=== PATIENT | female | born 1945 | race Caucasian/White ===

== ENCOUNTER 2019-12-24 15:02 | Inpatient (IN) | payer MEDICARE, OTHER ==
[~2019-12-24] VITALS: Ht 152.4 cm; Wt 38.6 kg
[2019-12-24] MEDS ORDERED: DOCU100C36 PO (15:26)
[2019-12-24] MEDS ORDERED: CARV6.252 PO (15:26)
[2019-12-24] MEDS ORDERED: MAGN400O6 PO (15:26)
[2019-12-24] MEDS ORDERED: ATOR80TA PO (15:26)
[2019-12-24] MEDS ORDERED: CLOP75TA15 PO (15:26)
[2019-12-24] MEDS ORDERED: POLY17PO4 PO (15:26)
[2019-12-24] MEDS ORDERED: SPIR50TA5 PO (15:26)
[2019-12-24] MEDS ORDERED: ESOM20CA PO (15:26)
[2019-12-24 15:43] LABS: BASOPHILS # (AUTO) 0.1 K/uL (0.0-8.0); BASOPHILS % (AUTO) 0.4 % (0.0-2.0); EOSINOPHILS # (AUTO) 0.1 K/uL (0.0-0.7); EOSINOPHILS % (AUTO) 0.7 % (0.0-7.0); HEMATOCRIT 34.4 % (31.2-41.9); HEMOGLOBIN 11.5 g/dL (10.9-14.3); LYMPHOCYTES # (AUTO) 0.9 K/uL (20.0-40.0); LYMPHOCYTES % (AUTO) 6.9 % (20.5-51.5); MEAN CORPUSCULAR HEMOGLOBIN 31.1 uug (24.7-32.8); MEAN CORPUSCULAR HGB CONC 34 g/dL (32.3-35.6); MEAN CORPUSCULAR VOLUME 92.6 fL (75.5-95.3); MONOCYTES # (AUTO) 1.2 K/uL (2.0-10.0); MONOCYTES % (AUTO) 9.7 % (0.0-11.0); NEUTROPHILS # (AUTO) 10.5 K/uL (1.8-8.9); NEUTROPHILS % (AUTO) 82.3 % (38.5-71.5); PLATELET COUNT (AUTO) 233 K/uL (179-408); RED BLOOD CELL COUNT(AUTO) 3.71 MIL/uL (3.63-4.92); WHITE BLOOD COUNT (AUTO) 12.8 K/uL (3.8-11.8)
[2019-12-24 15:57] LABS: BILIRUBIN,DIRECT 0.4 mg/dL (0.0-0.2); BILIRUBIN,TOTAL 1.2 mg/dL (0.2-1.0); POTASSIUM 4.3 mmol/L (3.5-5.1); TOTAL PROTEIN, SERUM 6.5 g/dL (6.4-8.2)
[2019-12-24] MEDS ORDERED: SWABABLE VALVE TRANSFER SET EA MC ONE (16:16)
[2019-12-24] MEDS ORDERED: IOHEXOL 300MG/ML 100 ML INFUS..BTL ONE (16:16)
[2019-12-24] MEDS ORDERED: IV NORMAL SALINE 250 ML IV ONE (16:16)
[2019-12-24 18:01] LABS: *BILIRUBIN,URIN NEGATIVE (NEGATIVE); *BLOOD, URINE 2+ (NEGATIVE); *CLARITY,URINE CLEAR (CLEAR); *COLOR,URINE YELLOW (YELLOW); *KETONES,URINE NEGATIVE (NEGATIVE); *UROBILINOGEN,URINE 0.2 E.U./dl (NORMAL); LEUKOCYTE ESTERASE ,URINE TRACE (NEGATIVE); NITRITE, URINE NEGATIVE (NEGATIVE); PH,URINE 5.5 (5.0-8.0); UGLUCOSE NEGATIVE (NEGATIVE)
--- NOTE | 2019-12-24 18:03 | NUR ---
CALLED DR. FRANK. DR. FRANK REQUEATED THE PT TOB ADMITTED BY HOSPITALIST.
[2019-12-24] MEDS ORDERED: CEFTRIAXONE 1 G in IV DEXTROSE 5% 50 ML IV ONE (18:30)
[2019-12-24] MEDS ORDERED: methylPREDNISolone SOD SUCC 125 MG/2 ML VIAL IV ONE (18:30)
[2019-12-24] MEDS ORDERED: AZITHROMYCIN IV 500 MG in IV DEXTROSE 5% 250 ML IV ONE (18:30)
[2019-12-24] MEDS ORDERED: AZITHROMYCIN 500MG/ D5W 250ML IVPB **ER PYXIS ONLY IV ONE (18:53)
[2019-12-24] MEDS ORDERED: CEFTRIAXONE /D5W 50ML IVPB **ER PYXIS IV ONE (18:53)
[2019-12-24] MEDS ORDERED: methylPREDNISolone SOD SUCC 40 MG/ML VIAL ONE (18:53)
[2019-12-24] MEDS ORDERED: CEFTRIAXONE 1 G in IV DEXTROSE 5% 50 ML IV SCH (19:45)
[2019-12-24] MEDS ORDERED: MAGNESIUM HYDROXIDE 30 ML LIQUID UDC PO PRN (19:45)
[2019-12-24] MEDS ORDERED: ALBUTEROL SULFATE 2.5 MG/3 ML NEBU NEB PRN (19:45)
[2019-12-24] MEDS ORDERED: Z GUARD REMEDY PASTE 57 GM TUBE TOP PRN (19:45)
[2019-12-24] MEDS ORDERED: IPRATROPIUM BROMIDE 0.5 MG/2.5 ML NEBU NEB PRN (19:45)
[2019-12-24] MEDS ORDERED: ACETAMINOPHEN 325 MG TABLET PO PRN (19:45)
--- NOTE | 2019-12-24 20:13 | NUR ---
Rocephin not administered. patient already received in ER.
--- NOTE | 2019-12-24 20:19 | NUR ---
dr. iraheta gave orders to start administration of coreg tonight.
[2019-12-24 20:20] LABS: BACTERIA,URINE MODERATE /HPF (NONE SEEN); SQUAMOUS EPITHELIAL CELL,UR FEW /HPF (NONE SEEN)
[2019-12-24 20:55] VITALS: BP 152/49
--- NOTE | 2019-12-24 21:02 | NUR ---
Transfered to 3rd floor Tele.
[2019-12-24] MEDS: HYDROCODONE/APAP 5-325MG TABLET PO PRN (21:16)
[2019-12-24] MEDS: MAGNESIUM HYDROXIDE 30 ML LIQUID UDC PO SCH (21:16)
[2019-12-24] MEDS: CARVEDILOL 6.25 MG TABLET PO SCH (21:20)
[2019-12-24] MEDS: ZOLPIDEM 5 MG TABLET PO PRN (23:04)
--- NOTE | 2019-12-24 23:04 | NUR ---
received orders from dr. iraheta for ambien 5mg at bedtime daily as needed for insomnia
[2019-12-25] MEDS ORDERED: HYDROCODONE/APAP 10-325 MG TABLET PO ONE (01:15)
--- NOTE | 2019-12-25 01:17 | NUR ---
patient c/o of pain 01/17. krystyna irvin np contacted. new order for give norco 10/325 x1 time only when next norco 5/325 is due at 0116. will administered at or after 0116.
--- NOTE | 2019-12-25 04:55 | NUR ---
patient slept intermittently. aaox3 but forgetful. able to verbalize needs. v/s stable and no s/s of acute distress. denies SOB. administered norco 10 and patient tolerated well for pain in the abdominal area and chest when coughing. admissions process complete. ID band on. PIV intact and patent. belongings list completed. will remain NPO after midnight status and endorse to morning nurse to place tray to side until US of the retroperitoneal is completed. on RA. able to walk to bathroom with assist. all medications administered without ASE. fall precautions in place. will continue to monitor and assess patient.
[2019-12-25] MEDS: PANTOPRAZOLE SODIUM 40 MG TABLET.DR PO SCH (06:07)
[2019-12-25 06:36] VITALS: BP 140/56
[2019-12-25 06:53] LABS: BASOPHILS % (AUTO) 0.1 % (0.0-2.0); HEMATOCRIT 32.4 % (31.2-41.9); HEMOGLOBIN 11.2 g/dL (10.9-14.3); LYMPHOCYTES # (AUTO) 0.5 K/uL (20.0-40.0); LYMPHOCYTES % (AUTO) 5.4 % (20.5-51.5); MEAN CORPUSCULAR HEMOGLOBIN 31.6 uug (24.7-32.8); MEAN CORPUSCULAR HGB CONC 35 g/dL (32.3-35.6); MEAN CORPUSCULAR VOLUME 91.7 fL (75.5-95.3); MONOCYTES # (AUTO) 0.1 K/uL (2.0-10.0); MONOCYTES % (AUTO) 1.4 % (0.0-11.0); NEUTROPHILS # (AUTO) 7.9 K/uL (1.8-8.9); NEUTROPHILS % (AUTO) 93.1 % (38.5-71.5); PLATELET COUNT (AUTO) 191 K/uL (179-408); RED BLOOD CELL COUNT(AUTO) 3.53 MIL/uL (3.63-4.92); WHITE BLOOD COUNT (AUTO) 8.5 K/uL (3.8-11.8)
[2019-12-25 07:08] LABS: CREATININE 1.1 mg/dL (0.6-1.3); MAGNESIUM 2.3 mg/dL (1.8-2.4); PHOSPHOROUS 3.5 mg/dL (2.5-4.9); POTASSIUM 4.4 mmol/L (3.5-5.1)
--- NOTE | 2019-12-25 08:00 | NUR ---
received pt. resting in bed alert oriented x3 but forgetful. pt. denies pain/ discomfort. pt. denies sob/ difficulty breathing. IV intact in L forearm 20 gauge intact patent saline lock. pt. on room air saturating well. safety measures in place. call light within reach. will continue to monitor pt.
[2019-12-25] MEDS: DOCUSATE SODIUM 100 MG CAPSULE PO SCH ×2 (08:22→17:58)
[2019-12-25] MEDS: CARVEDILOL 6.25 MG TABLET PO SCH ×2 (08:23→17:58)
[2019-12-25] MEDS: methylPREDNISolone SOD SUCC 40 MG/ML VIAL IV SCH (08:23)
[2019-12-25] MEDS: MIRALAX 17 GM POWD.PACK PO SCH (08:23)
[2019-12-25] MEDS: SPIRONOLACTONE 50 MG TABLET PO SCH (08:23)
[2019-12-25] MEDS: CLOPIDOGREL 75 MG TABLET PO SCH (08:23)
[2019-12-25 08:32] VITALS: BP 141/81
[2019-12-25] MEDS ORDERED: CARVEDILOL 6.25 MG TABLET PO SCH (09:00)
[2019-12-25] MEDS: HYDROCODONE/APAP 5-325MG TABLET PO PRN (12:53)
[2019-12-25 15:16] VITALS: BP 139/70
[2019-12-25] MEDS: BENZOCAINE/MENTH/CETYLPYRD LOZENGE MM PRN (16:35)
[2019-12-25] MEDS: CEFTRIAXONE 1 G in IV DEXTROSE 5% 50 ML IV SCH (17:58)
[2019-12-25 20:06] VITALS: BP 146/74
[2019-12-25] MEDS: AZITHROMYCIN IV 250 MG in IV DEXTROSE 5% 250 ML IV SCH (20:36)
[2019-12-25] MEDS: MAGNESIUM HYDROXIDE 30 ML LIQUID UDC PO SCH (20:36)
[2019-12-25] MEDS: ATORVASTATIN 40 MG TABLET PO SCH (20:38)
[2019-12-25] MEDS: ZOLPIDEM 5 MG TABLET PO PRN (21:50)
[2019-12-26] MEDS: HYDROCODONE/APAP 5-325MG TABLET PO PRN ×2 (02:29→12:09)
[2019-12-26 04:06] VITALS: BP 126/62
[2019-12-26] MEDS: PANTOPRAZOLE SODIUM 40 MG TABLET.DR PO SCH (06:19)
[2019-12-26 06:39] LABS: HEMATOCRIT 27.2 % (31.2-41.9); HEMOGLOBIN 9.3 g/dL (10.9-14.3); LYMPHOCYTES # (AUTO) 0.8 K/uL (20.0-40.0); MEAN CORPUSCULAR HEMOGLOBIN 31.1 uug (24.7-32.8); MEAN CORPUSCULAR HGB CONC 34 g/dL (32.3-35.6); MEAN CORPUSCULAR VOLUME 91.6 fL (75.5-95.3); MONOCYTES # (AUTO) 1.5 K/uL (2.0-10.0); MONOCYTES % (AUTO) 7.2 % (0.0-11.0); NEUTROPHILS # (AUTO) 18.1 K/uL (1.8-8.9); NEUTROPHILS % (AUTO) 88.8 % (38.5-71.5); PLATELET COUNT (AUTO) 207 K/uL (179-408); RED BLOOD CELL COUNT(AUTO) 2.97 MIL/uL (3.63-4.92); WHITE BLOOD COUNT (AUTO) 20.4 K/uL (3.8-11.8)
[2019-12-26 06:59] LABS: CREATININE 1.1 mg/dL (0.6-1.3); POTASSIUM 4.6 mmol/L (3.5-5.1)
--- NOTE | 2019-12-26 08:00 | NUR ---
received pt. resting in bed alert oriented x3 but forgetful. pt. denies pain/ discomfort. pt. denies sob/ difficulty breathing. IV intact in R hand 22 gauge intact patent saline lock. pt. on room air saturating well. safety measures in place. call light within reach. will continue to monitor pt.
[2019-12-26] MEDS: DOCUSATE SODIUM 100 MG CAPSULE PO SCH ×2 (08:04→17:35)
[2019-12-26] MEDS: SPIRONOLACTONE 50 MG TABLET PO SCH (08:04)
[2019-12-26] MEDS: CLOPIDOGREL 75 MG TABLET PO SCH (08:04)
[2019-12-26] MEDS: methylPREDNISolone SOD SUCC 40 MG/ML VIAL IV SCH (08:05)
[2019-12-26] MEDS: MIRALAX 17 GM POWD.PACK PO SCH (08:05)
[2019-12-26] MEDS: CARVEDILOL 6.25 MG TABLET PO SCH ×2 (08:06→17:41)
[2019-12-26] MEDS: BENZOCAINE/MENTH/CETYLPYRD LOZENGE MM PRN (09:18)
[2019-12-26 11:54] VITALS: BP 135/63
[2019-12-26 15:54] VITALS: BP 157/63
[2019-12-26] MEDS: CEFTRIAXONE 1 G in IV DEXTROSE 5% 50 ML IV SCH (17:34)
--- NOTE | 2019-12-26 20:00 | NUR ---
received report and patient under my care. aaox3 and forgetful. able to make needs known. v/s stable and no s/s of acute distress noted. safety precautions provided. will continue to monitor.
[2019-12-26 20:06] VITALS: BP 142/67
[2019-12-26] MEDS: AZITHROMYCIN IV 250 MG in IV DEXTROSE 5% 250 ML IV SCH (20:10)
[2019-12-26] MEDS: MAGNESIUM HYDROXIDE 30 ML LIQUID UDC PO SCH (20:15)
[2019-12-26] MEDS: ATORVASTATIN 40 MG TABLET PO SCH (20:15)
[2019-12-26] MEDS: ZOLPIDEM 5 MG TABLET PO PRN (22:37)
[2019-12-27 04:06] VITALS: BP 158/69
[2019-12-27] MEDS: PANTOPRAZOLE SODIUM 40 MG TABLET.DR PO SCH (06:00)
[2019-12-27 06:19] VITALS: BP 149/59
[2019-12-27 06:47] LABS: BASOPHILS % (AUTO) 0.2 % (0.0-2.0); HEMATOCRIT 31.1 % (31.2-41.9); HEMOGLOBIN 10.5 g/dL (10.9-14.3); LYMPHOCYTES # (AUTO) 1.4 K/uL (20.0-40.0); MEAN CORPUSCULAR HEMOGLOBIN 31.1 uug (24.7-32.8); MEAN CORPUSCULAR HGB CONC 34 g/dL (32.3-35.6); MEAN CORPUSCULAR VOLUME 91.9 fL (75.5-95.3); MONOCYTES # (AUTO) 1.5 K/uL (2.0-10.0); MONOCYTES % (AUTO) 9.4 % (0.0-11.0); NEUTROPHILS # (AUTO) 12.7 K/uL (1.8-8.9); NEUTROPHILS % (AUTO) 81.4 % (38.5-71.5); PLATELET COUNT (AUTO) 262 K/uL (179-408); RED BLOOD CELL COUNT(AUTO) 3.39 MIL/uL (3.63-4.92); WHITE BLOOD COUNT (AUTO) 15.6 K/uL (3.8-11.8)
[2019-12-27 07:01] LABS: BILIRUBIN,TOTAL 0.4 mg/dL (0.2-1.0); POTASSIUM 4.6 mmol/L (3.5-5.1); TOTAL PROTEIN, SERUM 6.4 g/dL (6.4-8.2)
--- NOTE | 2019-12-27 07:30 | NUR ---
received patient in bed, awake, alert and verbally responsive. No Signs of distress noted. Afebrile. No complain of pain or discomfort at this time. No nausea/vomiting. kept clean and comfortable. Will continue to monitor.
[2019-12-27] MEDS: methylPREDNISolone SOD SUCC 125 MG/2 ML VIAL IV SCH (08:00)
[2019-12-27] MEDS: SPIRONOLACTONE 50 MG TABLET PO SCH (08:00)
[2019-12-27] MEDS: DOCUSATE SODIUM 100 MG CAPSULE PO SCH ×2 (08:00→16:44)
[2019-12-27] MEDS: MIRALAX 17 GM POWD.PACK PO SCH (08:01)
[2019-12-27] MEDS: CARVEDILOL 6.25 MG TABLET PO SCH ×2 (08:01→16:43)
[2019-12-27] MEDS: CLOPIDOGREL 75 MG TABLET PO SCH (08:01)
[2019-12-27] MEDS: HYDROCODONE/APAP 5-325MG TABLET PO PRN ×3 (08:55→19:57)
[2019-12-27] MEDS: ONDANSETRON 4 MG/2 ML VIAL IV PRN ×2 (08:55→09:37)
[2019-12-27 11:02] VITALS: BP 100/61
[2019-12-27] MEDS: GLUCERNA SHAKE VANILLA 237 ML CAN PO SCH ×2 (12:08→16:44)
[2019-12-27 15:02] VITALS: BP 109/55
[2019-12-27] MEDS: CEFTRIAXONE 1 G in IV DEXTROSE 5% 50 ML IV SCH (17:17)
--- NOTE | 2019-12-27 18:19 | NUR ---
Patient in bed, awake, alert and verbally responsive. No signs of distress noted. No SOB. Afebrile. Pain medication given as ordered for Abdominal pain with help. kept clean and comfortable. Will endorse to Oncoming Nurse.
--- NOTE | 2019-12-27 19:30 | NUR ---
Report received. Patient admitted 12/24/2019 DX: Emphysema. RAGHAVENDRA, able to make needs known. Plan of care discussed including probable discharge tomorrow as per report. NAD noted. Up to the BR by herself. Fall and safety precautions discussed; patient verbalized understanding. Addendum: 12/27/19 at 2157 by DELMY FRANKLIN RN Amended: Links added. Addendum: 12/27/19 at 2159 by DELMY FRANKLIN RN Amended: Links added. Addendum: 12/27/19 at 2200 by DELMY FRANKLIN RN Amended: Links added. Addendum: 12/27/19 at 2200 by DELMY FRANKLIN RN Amended: Links added. Addendum: 12/27/19 at 2203 by DELMY FRANKLIN RN Amended: Links added. Addendum: 12/27/19 at 2202 by DELMY FRANKLIN RN Amended: Links added. Addendum: 12/27/19 at 2202 by DELMY FRANKLIN RN Amended: Links added. Addendum: 12/27/19 at 2202 by DELMY FRANKLIN RN Amended: Links added. Addendum: 12/27/19 at 2203 by DELMY FRANKLIN RN Amended: Links added. Addendum: 12/27/19 at 2203 by DELMY FRANKLIN RN Amended: Links added. Addendum: 12/27/19 at 2203 by DELMY FRANKLIN RN Amended: Links added.
--- NOTE | 2019-12-27 19:57 | NUR ---
Medicated with Lilly 1 tab for abdominal pain per patient's request. Zithromax IVPB given via patent IV site. Addendum: 12/27/19 at 2159 by DELMY FRANKLIN RN Amended: Links added. Addendum: 12/27/19 at 2200 by DELMY FRANKLIN RN Amended: Links added. Addendum: 12/27/19 at 2200 by DELMY FRANKLIN RN Amended: Links added. Addendum: 12/27/19 at 2203 by DELMY FRANKLIN RN Amended: Links added. Addendum: 12/27/19 at 2203 by DELMY FRANKLIN RN Amended: Links added. Addendum: 12/27/19 at 2202 by DELMY FRANKLIN RN Amended: Links added. Addendum: 12/27/19 at 2202 by DELMY FRANKLIN RN Amended: Links added. Addendum: 12/27/19 at 4 by DELMY FRANKLIN RN Amended: Links added. Addendum: 12/27/19 at 2204 by DELMY FRANKLIN RN Amended: Nina added. Addendum: 12/27/19 at 2204 by DELMY FRANKLIN RN Amended: Nina added.
[2019-12-27] MEDS: AZITHROMYCIN IV 250 MG in IV DEXTROSE 5% 250 ML IV SCH (19:59)
[2019-12-27 20:02] VITALS: BP 154/65
[2019-12-27] MEDS: ATORVASTATIN 40 MG TABLET PO SCH (20:11)
[2019-12-27] MEDS ORDERED: MAGNESIUM HYDROXIDE 30 ML LIQUID UDC PO SCH (21:00)
--- NOTE | 2019-12-27 21:30 | NUR ---
Up to the BR again to void. Provided with a tuna sandwich and decaf coffee per patient's request; ate well without problems. Addendum: 12/27/19 at 2202 by DELMY FRANKLIN RN Amended: Links added. Addendum: 12/27/19 at 2202 by DELMY FRANKLIN RN Amended: Links added. Addendum: 12/27/19 at 2202 by DELMY FRANKLIN RN Amended: Links added. Addendum: 12/27/19 at 2203 by DELMY FRANKLIN RN Amended: Links added. Addendum: 12/27/19 at 2204 by DELMY FRANKLIN RN Amended: Links added. Addendum: 12/27/19 at 2204 by DELMY FRANKLIN RN Amended: Links added. Addendum: 12/27/19 at 2204 by DELMY FRANKLIN RN Amended: Links added.
[2019-12-27] MEDS: ZOLPIDEM 5 MG TABLET PO PRN (22:38)
--- NOTE | 2019-12-27 22:38 | NUR ---
Medicated with Ambien for sleep per patient's request.
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
[2019-12-28 05:01] VITALS: BP 153/63
[2019-12-28] MEDS: PANTOPRAZOLE SODIUM 40 MG TABLET.DR PO SCH (06:19)
[2019-12-28 06:39] LABS: BASOPHILS % (AUTO) 0.1 % (0.0-2.0); EOSINOPHILS % (AUTO) 0.1 % (0.0-7.0); HEMATOCRIT 28.8 % (31.2-41.9); HEMOGLOBIN 9.6 g/dL (10.9-14.3); LYMPHOCYTES # (AUTO) 1.4 K/uL (20.0-40.0); LYMPHOCYTES % (AUTO) 8.9 % (20.5-51.5); MEAN CORPUSCULAR HEMOGLOBIN 30.9 uug (24.7-32.8); MEAN CORPUSCULAR HGB CONC 33 g/dL (32.3-35.6); MEAN CORPUSCULAR VOLUME 92.5 fL (75.5-95.3); MONOCYTES # (AUTO) 1.7 K/uL (2.0-10.0); MONOCYTES % (AUTO) 10.6 % (0.0-11.0); NEUTROPHILS # (AUTO) 12.7 K/uL (1.8-8.9); NEUTROPHILS % (AUTO) 80.3 % (38.5-71.5); PLATELET COUNT (AUTO) 258 K/uL (179-408); RED BLOOD CELL COUNT(AUTO) 3.12 MIL/uL (3.63-4.92); WHITE BLOOD COUNT (AUTO) 15.8 K/uL (3.8-11.8)
--- NOTE | 2019-12-28 06:51 | NUR ---
Slept fairly well during the night. Ambulates to the BR by herself to void without problems. VS stable.
[2019-12-28 06:57] LABS: CREATININE 1.1 mg/dL (0.6-1.3); POTASSIUM 4.4 mmol/L (3.5-5.1)
[2019-12-28] MEDS ORDERED: PRED20TA PO (07:19)
--- NOTE | 2019-12-28 07:30 | NUR ---
SEEN BY DR KOEHLER FOR FOLLOW-UP, WILL DC PATIENT TODAY WITH HOME MEDS.
[2019-12-28] MEDS: methylPREDNISolone SOD SUCC 125 MG/2 ML VIAL IV SCH (08:34)
[2019-12-28] MEDS: DOCUSATE SODIUM 100 MG CAPSULE PO SCH (08:34)
[2019-12-28] MEDS: SPIRONOLACTONE 50 MG TABLET PO SCH (08:35)
[2019-12-28] MEDS: CARVEDILOL 6.25 MG TABLET PO SCH (08:35)
[2019-12-28] MEDS: CLOPIDOGREL 75 MG TABLET PO SCH (08:35)
[2019-12-28] MEDS: MIRALAX 17 GM POWD.PACK PO SCH (08:36)
[2019-12-28] MEDS: GLUCERNA SHAKE VANILLA 237 ML CAN PO SCH ×2 (08:36→12:05)
[2019-12-28] MEDS: HYDROCODONE/APAP 5-325MG TABLET PO PRN (10:47)
--- NOTE | 2019-12-28 10:56 | NUR ---
PATIENT WILL BE PICK-UP BY FRIEND THIS PM
[2019-12-28 11:48] VITALS: BP 141/69
--- NOTE | 2019-12-28 12:18 | NUR ---
DISCHARGE HOME STABLE ACCOMPANIED BY FRIEND WITH HOME MEDS AND FOLLOW-UP INSTRUCTION
== END 2019-12-28 12:21 | disposition home or self-care (01) | DRG 190 ==
LOC: ER 15:02 → MERGE 15:02 → TELE3 20:20 → MEDSURG3 22:00
PROVIDERS: ADMIT Family Medicine; ATTEND Family Medicine
DX: J43.9 Emphysema, unspecified (principal); N17.0 Acute kidney failure with tubular necrosis; E43 Unspecified severe protein-calorie malnutrition; N12 Tubulo-interstitial nephritis, not specified as acute or chronic; Z68.1 Body mass index [BMI] 19.9 or less, adult; I50.32 Chronic diastolic (congestive) heart failure; J98.11 Atelectasis; D72.829 Elevated white blood cell count, unspecified; K62.89 Other specified diseases of anus and rectum; I25.10 Atherosclerotic heart disease of native coronary artery without angina pectoris; K21.9 Gastro-esophageal reflux disease without esophagitis; N20.0 Calculus of kidney; Z87.891 Personal history of nicotine dependence; N26.1 Atrophy of kidney (terminal); K57.30 Diverticulosis of large intestine without perforation or abscess without bleeding; K58.1 Irritable bowel syndrome with constipation; E80.6 Other disorders of bilirubin metabolism; E88.09 Other disorders of plasma-protein metabolism, not elsewhere classified; E11.9 Type 2 diabetes mellitus without complications
CPT/HCPCS: 36415; 70030-TC; 71045; 71250; 76770; 83605; 83690; 83735; 84100; 85025; 85730; 87040; 87086; 93005; 93307; A4663; G0378; J0456; J0696; J2405; J2920; J2930; J7040; J7050; J7060; Q9967